=== PATIENT | female | born 1960 | race Caucasian/White ===

== ENCOUNTER 2018-02-03 08:57 | Observation (INO) | payer MEDICAID ==
[2018-02-03] MEDS ORDERED: POLYMYXIN/BACITRACIN 1L IRRIG (10:10)
[2018-02-03 10:17] LABS: ADD MAN DIFF? NO
[2018-02-03 10:21] LABS: BASOPHILS % 0.4 % (0.0-2.0); EOSINOPHILS # 0.2 10^3/ul (0.0-0.5); EOSINOPHILS % 3.1 % (0.0-7.0); HEMATOCRIT 42.2 % (37.0-47.0); LYMPHOCYTES # 1.9 10^3/ul (0.8-2.9); LYMPHOCYTES % 27.6 % (15.0-51.0); MEAN CORPUSCULAR HGB CONC 33.2 g/dl (32.0-37.0); MEAN CORPUSCULAR VOLUME 87.4 fl (82.0-101.0); MEAN PLATELET VOLUME 9.7 fl (7.4-10.4); MONOCYTE # 0.4 10^3/ul (0.3-0.9); MONOCYTES % 6.1 % (0.0-11.0); NEUTROPHIL # 4.3 10^3/ul (1.6-7.5); NEUTROPHILS % 62.1 % (39.0-77.0); PLATELET COUNT 221 10^3/UL (140-415); RED BLOOD COUNT 4.83 10^6/ul (4.20-5.40)
[2018-02-03 10:21] LABS: WHITE BLOOD COUNT 6.9 10^3/ul (4.8-10.8)
[2018-02-03] MEDS ORDERED: LIDOCAINE 1%/EPI 30 ML INJ (10:21)
[2018-02-03 10:39] LABS: ANION GAP 11 (8-16); BLOOD UREA NITROGEN 20 mg/dl (7-20); CALCIUM 9.2 mg/dl (8.4-10.2); CARBON DIOXIDE 29 mmol/L (21-31); CHLORIDE 107 mmol/L (97-110); CHOL/HDL RATIO 5.3 RATIO; CHOLESTEROL 155 mg/dl (100-200); CREATININE 0.92 mg/dl (0.44-1.00); GLUCOSE 106 mg/dl (70-220); HDL CHOLESTEROL 29 mg/dl (37-92); LDL CHOLESTEROL,CALCULATED 99 mg/dl; POTASSIUM 4.2 mmol/L (3.5-5.1); SODIUM 143 mmol/L (135-144); TRIGLYCERIDES 136 mg/dl (0-149)
[2018-02-03 10:41] LABS: INR 1.16; PT RATIO 1.2
[2018-02-03 10:42] LABS: PARTIAL THROMBOPLASTIN TIME 30.2 Sec (25.0-35.0)
[2018-02-03] MEDS ORDERED: MIDAZOLAM 1 MG/ML 2 ML INJ ×2 (11:05)
[2018-02-03] MEDS ORDERED: FENTAnyl 50 MCG/ML VIAL (11:06)
[2018-02-03] MEDS: CEFAZOLIN 1 GM/50 ML (PMX) 50 ML IVPB (12:30)
[2018-02-03] MEDS ORDERED: SOD CHLORIDE 0.45% 1,000 ML IV (12:30)
[2018-02-03] MEDS: DIAZEPAM 5 MG TAB PO (12:30)
[2018-02-03] MEDS ORDERED: ONDANSETRON 4 MG INJ IV (13:00)
[2018-02-03] MEDS ORDERED: ALBUTEROL 0.083% (NEB) 2.5 MG/3 ML AMP HHN (13:00)
[2018-02-03] MEDS ORDERED: METOCLOPRAMIDE 10 MG INJ IV (13:00)
[2018-02-03] MEDS ORDERED: LABETALOL HCL 20MG INJ IV (13:00)
[2018-02-03] MEDS ORDERED: EPHEDrine SULFATE 50 MG/5 ML SYG IV (13:00)
[2018-02-03] MEDS ORDERED: morphine 2 MG INJ IV ×2 (13:00→18:00)
[2018-02-03] MEDS ORDERED: hydrALAzine 20 MG INJ IV (13:00)
[2018-02-03] MEDS ORDERED: DIPHENHYDRAMINE 50 MG INJ IV (13:00)
[2018-02-03] MEDS: HYDROCODONE/APAP (5/325) TAB PO (19:01)
[2018-02-03] MEDS: METOPROLOL 25 MG TAB PO (20:23)
[2018-02-04] MEDS ORDERED: LORAZEPAM 2 MG INJ IV
[2018-02-04] MEDS: ACETAMINOPHEN 325 MG TAB PO (00:59)
[2018-02-04] MEDS: KETOROLAC 30 MG INJ IV (04:46)
[2018-02-04 05:41] LABS: ADD MAN DIFF? NO
[2018-02-04 05:47] LABS: BASOPHILS % 0.4 % (0.0-2.0); EOSINOPHILS # 0.2 10^3/ul (0.0-0.5); EOSINOPHILS % 3.1 % (0.0-7.0); HEMATOCRIT 42.3 % (37.0-47.0); HEMOGLOBIN 13.4 g/dl (12.0-16.0); LYMPHOCYTES # 2.2 10^3/ul (0.8-2.9); LYMPHOCYTES % 28.8 % (15.0-51.0); MEAN CORPUSCULAR HEMOGLOBIN 29.5 pg (29.0-33.0); MEAN CORPUSCULAR HGB CONC 31.7 g/dl (32.0-37.0); MEAN CORPUSCULAR VOLUME 93.2 fl (82.0-101.0); MONOCYTE # 0.4 10^3/ul (0.3-0.9); MONOCYTES % 5.9 % (0.0-11.0); NEUTROPHIL # 4.6 10^3/ul (1.6-7.5); NEUTROPHILS % 61.4 % (39.0-77.0); PLATELET COUNT 210 10^3/UL (140-415); RED BLOOD COUNT 4.54 10^6/ul (4.20-5.40); RED CELL DISTRIBUTION WIDTH 13.8 % (11.5-14.5)
[2018-02-04 05:47] LABS: WHITE BLOOD COUNT 7.5 10^3/ul (4.8-10.8)
[2018-02-04 06:15] LABS: ANION GAP 14 (8-16); BLOOD UREA NITROGEN 18 mg/dl (7-20); CALCIUM 8.8 mg/dl (8.4-10.2); CARBON DIOXIDE 26 mmol/L (21-31); CHLORIDE 107 mmol/L (97-110); CREATININE 0.87 mg/dl (0.44-1.00); GLUCOSE 130 mg/dl (70-220); POTASSIUM 4.3 mmol/L (3.5-5.1); SODIUM 143 mmol/L (135-144)
[2018-02-04] MEDS: METOPROLOL 25 MG TAB PO (09:08)
[2018-02-04 10:20] LABS: AADO2 Arterial 89.2 mmHg (7.0-24.0); Allen Test ACCEPTAB; Arterial Base Excess 2.2 mmol/L (-3.0-3); Arterial Blood Gas Oxygen Sat 92.5 mmHG (95.0-98.0); Arterial COHb 0.5 % (0.0-3.0); Arterial Fraction of Oxyhgb 91.9 % (93.0-99.0); Arterial HCO3 28.6 mmol/L (22.0-26.0); Arterial MetHb 0.1 % (0.0-1.5); Arterial Total Hemglobin 14.6 g/dl (12.0-18.0); Arterial pCO2 51.6 mmhg (35-45); MODE NASAL CANNULA; Site Right Radial
== END 2018-02-04 17:10 | disposition home or self-care (01) ==
LOC: SDS 08:57 → REC 12:49 → ICU 12:59
DX: I48.91 Unspecified atrial fibrillation (principal); I49.5 Sick sinus syndrome; G47.33 Obstructive sleep apnea (adult) (pediatric); I10 Essential (primary) hypertension; I25.10 Atherosclerotic heart disease of native coronary artery without angina pectoris; E66.01 Morbid (severe) obesity due to excess calories; Z68.42 Body mass index [BMI] 45.0-49.9, adult; Z99.81 Dependence on supplemental oxygen
CPT/HCPCS: 33207; 36600; 71045; 80048; 80061; 82803; 85025; 85610; 85730; 87081; 93005; 99217

== ENCOUNTER 2019-02-25 10:25 | Emergency (ER) | payer MEDICAID ==
[2019-02-25] MEDS: ONDANSETRON (ODT) 4 MG TAB ODT (11:05)
[2019-02-25] MEDS: morphine 10 MG INJ IM (11:07)
== END 2019-02-25 12:14 | disposition home or self-care (01) ==
LOC: FTE 10:25
DX: M54.9 Dorsalgia, unspecified (principal); I10 Essential (primary) hypertension; E66.01 Morbid (severe) obesity due to excess calories; Z68.41 Body mass index [BMI] 40.0-44.9, adult
CPT/HCPCS: 71045; 72100; 96372; 99284-25